=== PATIENT | female | born 1970 | race Two or more races ===

== ENCOUNTER → 2017-01-14 | Outpatient (CLI) | payer OTHER ==
[~2017-01-14] MED LIST: IBUP1TAB PO; MULT-224 PO
== END ==
LOC: STAR 07:44
PROVIDERS: ATTEND Obstetrics & Gynecology Female Pelvic Medicine and Reconstructive Surgery
DX: Z02.9 Encounter for administrative examinations, unspecified (principal)

== ENCOUNTER 2017-01-19 08:54 | Day surgery (SDC) | payer OTHER ==
[2017-01-14 08:28] VITALS: BP 127/82
[~2017-01-19] VITALS: Ht 157.5 cm; Wt 62.2 kg
[~2017-01-19 08:54] MED LIST changes: +BUPIVACAINE/PF 0.25% ONE; +EPINEPHRINE 1 MG/ML, 1ML ONE; +NEOMY/POLYMYXIN B GU IRR. 1 ML IRRIG ONE
[2017-01-19 09:26] LABS: HCG UR LOT HCG7030192
[2017-01-19] MEDS ORDERED: LACTATED RINGERS 1,000 ML IV SCH (09:43)
[2017-01-19 09:51] LABS: HCG UR OBC PASS
[2017-01-19] MEDS ORDERED: FENTANYL PF 100 MCG/2ML ONE ×2 (10:31→13:16)
[2017-01-19] MEDS ORDERED: MIDAZOLAM 1 MG/ML, 2ML ONE (10:31)
[2017-01-19] MEDS ORDERED: PROPOFOL 10 MG/ML, 20ML ONE (10:32)
[2017-01-19] MEDS ORDERED: LIDOCAINE-MPF 2% ,5ML ONE (10:32)
[2017-01-19] MEDS ORDERED: ROCURONIUM 10 MG/ML ONE (10:33)
[2017-01-19] MEDS ORDERED: CEFAZOLIN 1,000 MG ONE ×2 (11:36)
[2017-01-19] MEDS ORDERED: DEXAMETHASONE 4 MG/ML, 1ML ONE ×2 (11:38)
[2017-01-19] MEDS ORDERED: KETAMINE 10 MG/ML, 20ML ONE (11:53)
[2017-01-19] MEDS ORDERED: HYDROmorphone 1 MG/ML, 1ML ONE (12:22)
[2017-01-19] MEDS ORDERED: MIDAZOLAM 1 MG/ML, 2ML IV PRN (12:30)
[2017-01-19] MEDS ORDERED: KETOROLAC 30 MG/1 ML ONE (12:30)
[2017-01-19] MEDS ORDERED: FENTANYL PF 100 MCG/2ML IV PRN (12:30)
[2017-01-19] MEDS ORDERED: ONDANSETRON 2MG/ML, 2ML ONE ×2 (12:30)
[2017-01-19] MEDS ORDERED: OXYcodone 5 MG/5 ML ORAL.SOL UDC PO PRN (12:30)
[2017-01-19] MEDS ORDERED: HYDROmorphone 1 MG/ML, 1ML IV PRN (12:30)
[2017-01-19] MEDS ORDERED: PROMETHAZINE 25 MG/ML, 1ML IV PRN (12:30)
[2017-01-19] MEDS ORDERED: MEPERIDINE/PF 25MG/0.5ML IVPush PRN (12:30)
[2017-01-19] MEDS ORDERED: LABETALOL 5MG/ML, 20ML IV PRN (12:30)
[2017-01-19] MEDS ORDERED: ONDANSETRON 2MG/ML, 2ML IVPush PRN (12:30)
[2017-01-19] MEDS ORDERED: ACETAMINOPHEN 325 MG TABLET PO PRN (12:30)
[2017-01-19] MEDS ORDERED: hydrALAzine 20 MG/ML, 1ML IV PRN (12:30)
[2017-01-19] MEDS ORDERED: OXYcodone 5 MG/5 ML ORAL.SOL UDC ONE (13:16)
[2017-01-19] MEDS ORDERED: ACETAMINOPHEN 650 MG/20.3 ML UDC ONE (13:16)
== END 2017-01-19 18:40 | disposition home or self-care (01) ==
LOC: OUT 08:54
PROVIDERS: ATTEND Obstetrics & Gynecology Female Pelvic Medicine and Reconstructive Surgery
DX: N92.1 Excessive and frequent menstruation with irregular cycle (principal); N94.6 Dysmenorrhea, unspecified; N39.3 Stress incontinence (female) (male); N80.0 Endometriosis of uterus
CPT/HCPCS: 57288; 58552; 81025; 88307; C1771; J0171; J0690; J1100; J1170; J1885; J2250; J2405; J2704; J3010; J3490; J7120